=== PATIENT | male | born 1950 | race Two or more races ===

== ENCOUNTER 2024-12-27 10:20 | Inpatient (IN) | payer OTHER, BC ==
[~2024-12-27] VITALS: Ht 172.7 cm; Wt 90.7 kg
[2024-12-27] MEDS ORDERED: LISINOPRIL20 MG PO (10:44)
[2024-12-27] MEDS ORDERED: AMLODIPINE-OLM1 EAC2 PO (10:44)
[2024-12-27] MEDS ORDERED: ATORVASTATIN CA20 MG PO (10:45)
[2024-12-27] MEDS ORDERED: 0.9 % SODIUM CHLORIDE 1,000 ML IV ONE (11:15)
[2024-12-27] MEDS ORDERED: BARIUM SULFATE 450 ML ORAL.SUSP PO ONE (11:19)
[2024-12-27 11:28] LABS: BASO % 0.3 % (0.1-1.2); EOS # 0.49 (0.04-0.54); EOS % 4.5 % (0.7-7.0); HEMATOCRIT 37.2 % (40.1-51.0); HEMOGLOBIN 12.1 g/dL (13.7-17.5); LYMPH # 1.15 (1.18-3.74); LYMPH % 10.5 % (19.3-53.1); MEAN CORPUSCULAR HEMOGLOBIN 27.3 pg (25.6-32.2); NEUT # 8.16 (1.56-6.13); NEUT % 74.4 % (34.0-71.1); PLATELET COUNT 219 K/uL (163-369); RED BLOOD COUNT 4.44 M/uL (4.63-6.08); RED CELL DISTRIBUTION WIDTH 14.5 % (11.6-14.4)
[2024-12-27 11:51] LABS: INR 1.03; PARTIAL THROMBOPLASTIN TIME 27.3 SECONDS (22.0-34.0); PROTHROMBIN TIME 11.2 SECONDS (9.0-11.5)
[2024-12-27 11:52] LABS: PH,URINE 7.5 (5.0-8.0); URINE APPEARANCE Clear; URINE BILIRRUBIN Negative (NEGATIVE); URINE BLOOD Negative; URINE COLOR Yellow; URINE GLUCOSE Negative (NEGATIVE); URINE KETONE Negative (NEGATIVE); URINE LEUKOCYTE Negative; URINE NITRATE Negative; URINE PROTEIN Negative (NEGATIVE); URINE UROBILINOGEN 0.2 E.U./dl
[2024-12-27 11:56] LABS: URINE RBC 5.4 uL (0.0-20.8); URINE WBC 3.4 uL (0.0-23.2)
[2024-12-27 12:01] LABS: ALBUMIN 3.6 gm/dL (3.4-5.0); BILIRUBIN TOTAL 0.45 mg/dL (0.3-1.2); CREATININE SERUM 1.25 mg/dL (0.70-1.30); GFR 56.46; POTASSIUM 4.01 mEq/L (3.5-5.1); TOTAL PROTEIN 7.6 gm/dL (6.4-8.2)
[2024-12-27 12:05] LABS: COVID-19 AG NEGATIVE (NEGATIVE); INFLUENZA A AG NEGATIVE (NEGATIVE); INFLUENZA B AG NEGATIVE (NEGATIVE)
[2024-12-27 12:20] LABS: URINE BACTERIA 0 uL (0.0-1933); URINE EPITHELIAL CELLS 1.1 uL (0.0-38.8)
[2024-12-27] MEDS ORDERED: CEFTRIAXONE SODIUM 2,000 MG in 0.9 % SODIUM CHLORIDE 100 ML IV SCH (17:37)
[2024-12-27] MEDS ORDERED: FAMOTIDINE/PF 20 MG in 0.9 % SODIUM CHLORIDE 8 ML IV PUSH SCH (17:37)
[2024-12-27] MEDS ORDERED: GUAIFEN/DEXTROMETHORPHAN/PE 10 ML BLIST.PACK PO SCH (17:37)
[2024-12-27] MEDS ORDERED: 0.9 % SODIUM CHLORIDE 1,000 ML IV SCH (17:45)
[2024-12-27] MEDS ORDERED: ACETAMINOPHEN 500 MG GEL..CAP PO PRN (17:45)
[2024-12-27] MEDS ORDERED: CEFTRIAXONE SODIUM 2,000 MG VIAL ONE (19:22)
[2024-12-27] MEDS ORDERED: ACETAMINOPHEN 500 MG GEL..CAP PO ONE (19:22)
[2024-12-27] MEDS ORDERED: GUAIFEN/DEXTROMETHORPHAN/PE 10 ML BLIST.PACK PO ONE (19:23)
[2024-12-27] MEDS ORDERED: FAMOTIDINE/PF 20 MG/2 ML VIAL ONE (19:23)
[2024-12-27] MEDS ORDERED: ENOXAPARIN SODIUM 40 MG/0.4 ML SYRINGE SUBCUTANEO SCH (19:41)
[2024-12-27] MEDS ORDERED: ENALAPRILAT DIHYDRATE 1.25 MG/ML VIAL IV PRN (19:45)
[2024-12-27] MEDS ORDERED: METHYLPREDNISOLONE SOD SUCC 40 MG VIAL IV STA (20:19)
[2024-12-27] MEDS ORDERED: LEVALBUTEROL HCL 0.63 MG/3 ML SOLUTION IH SCH (20:31)
[2024-12-27] MEDS ORDERED: MONTELUKAST SODIUM 10 MG TABLET PO SCH (21:00)
[2024-12-27] MEDS ORDERED: DOXAZOSIN MESYLATE 2 MG TABLET PO SCH (21:00)
[2024-12-27 21:21] VITALS: BP 160/75; O2SAT 94
[2024-12-27 23:33] VITALS: BP 100/60; O2SAT 95
[2024-12-28] MEDS ORDERED: BENZONATATE 100 MG CAPSULE PO SCH
[2024-12-28 01:00] VITALS: BP 113/55; O2SAT 95
[2024-12-28 02:53] LABS: ABG PH 7.399 (7.35-7.45); ABG pCO2 39.9 mmHg (35-45); BASE EXCESS -0.6 mmol/l; BICARBONATE 24.1 mmol/l (23-25); SaO2 93.3 %; Tco2 25.3 mmol/l; allen test SATISFACTORY; mode ROOM AIR; o2 21 %; puncture site RADIAL LEFT
[2024-12-28 02:54] LABS: ABG PO2 68.3 mmHg (80-100)
[2024-12-28 06:17] LABS: HEMATOCRIT 37.1 % (40.1-51.0); HEMOGLOBIN 12.1 g/dL (13.7-17.5); LYMPH # 0.64 (1.18-3.74); LYMPH % 8.7 % (19.3-53.1); MEAN CORPUSCULAR HEMOGLOBIN 27.3 pg (25.6-32.2); MONO # 0.11 (0.24-0.82); MONO % 1.5 % (4.7-12.5); NEUT # 6.55 (1.56-6.13); NEUT % 89.5 % (34.0-71.1); PLATELET COUNT 236 K/uL (163-369); RED BLOOD COUNT 4.44 M/uL (4.63-6.08); RED CELL DISTRIBUTION WIDTH 14.2 % (11.6-14.4)
[2024-12-28 07:12] LABS: CALCIUM 8.7 mg/dL (8.5-10.1); CREATININE SERUM 1.04 mg/dL (0.70-1.30); GFR 69.81; MAGNESIUM 2.2 mg/dL (1.8-2.4); PHOSPHOROUS 4.1 mg/dL (2.5-4.9); POTASSIUM 3.94 mEq/L (3.5-5.1)
[2024-12-28 08:37] VITALS: BP 118/69; O2SAT 95
[2024-12-28] MEDS ORDERED: HYDROCHLOROTHIAZIDE 25 MG TABLET PO SCH (09:00)
[2024-12-28] MEDS ORDERED: LISINOPRIL 20 MG TABLET PO SCH (09:00)
[2024-12-28] MEDS ORDERED: LISINOPRIL 40 MG TABLET PO SCH (09:00)
[2024-12-28] MEDS ORDERED: ATORVASTATIN CALCIUM 20 MG TABLET PO SCH ×2 (09:00→17:00)
[2024-12-28] MEDS ORDERED: AMLODIPINE BESYLATE 10 MG TABLET PO SCH (09:00)
[2024-12-28] MEDS ORDERED: METRONIDAZOLE/SODIUM CHLORIDE 100 ML IV SCH (13:36)
[2024-12-28] MEDS ORDERED: METHYLPREDNISOLONE SOD SUCC 40 MG VIAL IV SCH (13:37)
[2024-12-28 16:12] VITALS: BP 110/66; BP 126/82; O2SAT 96
[2024-12-28] MEDS ORDERED: LEVALBUTEROL HCL 0.63 MG/3 ML SOLUTION IH SCH (17:00)
[2024-12-28] MEDS ORDERED: DOXAZOSIN MESYLATE 2 MG TABLET PO SCH (17:00)
[2024-12-28] MEDS ORDERED: LACTOBACILLUS ACIDOPHILUS 1 CAP CAP PO SCH (17:00)
[2024-12-28] MEDS ORDERED: GUAIFENESIN 600 MG TABLET.SA PO SCH (21:00)
[2024-12-29 00:18] VITALS: BP 129/66; O2SAT 98
[2024-12-29 08:24] VITALS: BP 139/66; O2SAT 96
[2024-12-29] MEDS ORDERED: METHYLPREDNISOLONE SOD SUCC 40 MG VIAL IV STA (12:06)
[2024-12-29] MEDS ORDERED: AMOX-CLAV 875-1 EACH PO (19:47)
== END 2024-12-29 23:25 | disposition home or self-care (01) | DRG 395 ==
LOC: ER 10:20 → SURG 18:33
PROVIDERS: General Practice; Internal Medicine Geriatric Medicine; ADMIT Surgery; ATTEND Surgery
PROC: BW21ZZZ Computerized Tomography (CT Scan) of Abdomen and Pelvis (ICD-10-PCS; principal; 2024-12-27)
PROC: B24BZZZ Ultrasonography of Heart with Aorta (ICD-10-PCS; 2024-12-27)
DX: K40.30 Unilateral inguinal hernia, with obstruction, without gangrene, not specified as recurrent (principal); I10 Essential (primary) hypertension; E78.5 Hyperlipidemia, unspecified; I35.1 Nonrheumatic aortic (valve) insufficiency; I35.0 Nonrheumatic aortic (valve) stenosis; I34.0 Nonrheumatic mitral (valve) insufficiency